=== PATIENT | female | born 1995 | race Caucasian/White ===

== ENCOUNTER 2017-02-26 06:59 | Inpatient (IN) ==
--- OUTSIDE RECORDS SUMMARY | 2017-02-26 07:12 | External Medical Summary | Continuity of Care Document ---
:1995 Author Organization [facility] [employer] Address [address] [place], [place] [id number] Phone Care Team Providers Name Role Phone Tova James MD Unavailable Unavailable Allergies, Adverse Reactions, Alerts Substance Reaction Severity Status No Known Drug Allergies Unknown Active Medications Medication Instructions Dosage Effective Dates Status Comments (start - stop) ORAL TABLET - Active famotidine 20 mg take 1 tablet by ORAL 20 MG - Active tablet route every day Problems Condition Effective Dates (start - stop) Clinical Status Ot related conditions, - second trimester Encntr for suprvsn of normal first - preg, second trimester 25 weeks gestation of - Encntr for suprvsn of normal first - preg, second trimester 22 weeks gestation of - Oth related conditions, - second trimester Encntr for suprvsn of normal first - preg, second trimester 26 weeks gestation of - Procedures Procedure Date 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 Marrufo [place], conditions, [address], [facility] [place], [place], trimesterEncntr Center [id number], for suprvsn of Chaka Valenzuela normal first 120, tel:+[phone] preg, second [place], [address] [email or web address] weeks [place], gestation of [id number] , [place]. tel: [phone] Manisha Angelo Oth Kasey In Womens related [facility], conditions, [address], second [place], [place], trimesterEncntr Center [id number], for suprvsn of Chaka Valenzuela normal first 120, tel:+21 preg, second Petey, [address] [email or web address] weeks [place], gestation of [id number] , [place]. tel: [phone] Manisha Angelo Encntr for Kasey In [facility] suprvsn of normal -2017 [facility] [place], first preg, [address], second Medical [place], [place], [id number] weeks Center [id number], gestation of Chaka Valenzuela 120, tel:+ [place] [address] [place], [id number] , [place]. tel: [phone] Family History Family Member Diagnosis Age At Onset No family history of Lung Disease No family history of Kidney Disease No family history of Stroke No family history of Thyroid Disorder No family history of Colon Cancer No family history of Breast Cancer No family history of Hypertension No family history of Ovarian Cancer No family history of Diabetes No family history of Osteoporosis No family history of Cardiovascular Disease No family history of Epilepsy Immunizations Vaccine Date Status Comments Unknown Payers Payer name Insurance type Covered alliance party ID Authorization(s) [employer] [place] [employer] - Medicaid [place] [id number] Social History Type Description Quantity Date Captured Alcohol Use Details No Caffeine Use Details coffee 1 cup per day Tobacco Use Status Smoking Status Former smoker Vital Signs Date / Height Weight BMI Pulse Blood Temperature Respiratory Body Head BMI Time: Rate Pressure Rate Surface Circumference percentile Area 155.10 28.3 133/87 -2016 lbs 6 mm[Hg] 11:47 kg/m AM eter (2) Chief Complaint And Reason For Visit Unknown Chief Complaint And Reason For Visit Reason For Referral Reason For Referral Unknown Plan Of Care Date Type Action Status Appointment Mary Alice Sepulveda BOOKED Date Type Problem Goal Intervention Status Start Date Unknown. History Of Present Illness Encounter Date Complaint History Of Present Illness This patient has no known history of present illness Functional Status Encounter Date Functional Assessment Cognitive Assessment Unknown Medications Administered Medication Instructions Dosage Effective Dates (start - stop) Status Comments Drug Treatment Unknown Instructions Date Instruction Additional Information gestational glucose lab screening domestic violence seat belt use childbirth classes / hospital facilities hospital registration genetic testing new ob handbook HIV and other routine tests risk factors identified by history anticipated course of care nutrition and weight gain counseling, special diet toxoplasmosis precautions (cats / raw meat) sexual activity exercise indications for ultrasound influenza vaccine environmental / work hazards travel tobacco (ask, advise, assess, assist and arrange) alcohol illicit / recreational drugs use of any medications (including supplements, vitamins, herbs, OTC drugs) smoking counseling
--- OUTSIDE RECORDS SUMMARY | 2017-02-26 07:12 | External Medical Summary | Continuity of Care Document ---
:1995 Author Organization [facility] Address [address] [place], [place] [id number] Phone Care Team Providers Name Role Phone Toav James MD Unavailable Unavailable Allergies, Adverse Reactions, Alerts Substance Reaction Severity Status No Known Drug Allergies Unknown Active Medications Medication Instructions Dosage Effective Dates Status Comments (start - stop) famotidine 20 mg take 1 tablet by ORAL - Active tablet route 1-2 times per day ORAL TABLET - Active Problems Condition Effective Dates (start - stop) Clinical Status Encntr for suprvsn of normal first - preg, second trimester 22 weeks gestation of - Oth related conditions, - third trimester Encntr for suprvsn of normal first - preg, third trimester 29 weeks gestation of - Oth related conditions, - second trimester Encntr for suprvsn of normal first - preg, second trimester 26 weeks gestation of - Oth related conditions, - second trimester Encntr for suprvsn of normal first - preg, second trimester 25 weeks gestation of - Procedures Procedure Date Unknown Results Test Name Date and Time Measure Units Reference Range Abnormal Flag Comments Unknown Advance Directives Directive Yes / No Effective Date File Name Unknown Encounters Encounter Practice Location Reason(s) Diagnoses Date Provider Care Team Description For Visit Members Associates [facility] Rosado Referring In Women related 7-201 Karlie. Provider: Health JOSEF, conditions, 7 700 Karlie Rosado [address], [facility] K, 700 [place], [place], [facility] [id number], for suprvsn of Chaka Valenzuela [place] normal first 120, Chaka 120, tel:+[phone] preg, third Petey [place], [address] [email or web address] [place], [place], weeks gestation [id number]. of , [place]. tel: tel: [phone] Associates Petey Sep-2 [place] In Womens 9-201 [facility] [place], 7 [address], [place], [place], [place] [id number], Chaka Valenzuela 120, tel:+[phone] [place], [address] [place], [id number] , [place]. tel: [phone] Associates Petey Ot Sep-2 [place] In Womens related 7-201 [facility] [place], conditions, 7 [address], [place], [place], [facility] [id number], for suprvsn of Chaka Valenzuela normal first 120, tel:+[phone] preg, second [place], [address] [place], weeks gestation [id number] of , [place]. tel: [phone] Associates Petey Ot Sep-1 Kasey In Womens related 8-201 [facility] [place], conditions, 7 [address], [place], [place], [facility] [id number], for suprvsn of Chaka Valenzuela normal first 120, tel:+[phone] preg, second [place], [address] [id number] [place], weeks gestation [id number] of , [place]. tel: [phone] Associates Petey Encntr for Aug-3 Kasey In Womens suprvsn of 0-201 [facility] [place], normal first 7 [address], preg, second [place], [email or web address] Center [id number], weeks gestation Chaka Valenzuela of 120, tel:[phone] [place], [address] [place], [id number] , [place]. tel: [phone] Family History Family Member Diagnosis Age At [...] of Epilepsy Immunizations Vaccine Date Status Comments Influenza, injectable, completed Source: New Immunization Record quadrivalent, preservative free, 3 yrs or older Payers Payer name Insurance type Covered alliance party ID Authorization(s) [employer] [place] [employer] - Medicaid [place] [id number] [employer] [place] [employer] - Medicaid [place] [id number] Social History Type Description Quantity Date Captured Unknown Vital Signs Date / Height Weight BMI Pulse Blood Temperature Respiratory Body Head BMI Time: Rate Pressure Rate Surface Circumference percentile Area Unknown Chief Complaint And Reason For Visit Unknown [...]
--- OUTSIDE RECORDS SUMMARY | 2017-02-26 07:12 | External Medical Summary | Continuity of Care Document ---
:1995 Author Organization [facility] Address [address] [place], [place] [id number] Phone Care Team Providers Name Role Phone [...] of normal first - preg, third trimester 31 weeks gestation of - Encntr for suprvsn [...] second trimester 25 weeks gestation of - Oth related conditions, - third trimester 33 weeks gestation of - Procedures Procedure Date Immuniz admnin, 1 vac, sngl/combo 19 Yrs + TDAP VACCINE >7 IM OB Visit No Charge Results Test Name Date and Time Measure Units Reference Range Abnormal Flag Comments Unknown Advance Directives Directive Yes / No Effective Date File Name Unknown Encounters Encounter Practice Location Reason(s) Diagnoses Date Provider Care Team Description For Visit Members Manisha Angelo [facility] Nov- Ros[place] In Womens related Karlie. Health JOSEF, conditions, 7 [address], third Medical [place], [place], [id number] [place] [id number], weeks gestation Chaka Valenzuela of 120, tel:+21 Petey, [address] [facility] [id number] , [place]. tel: [phone] Manisha Angelo [facility] for Oct-3 Rosado Referring In Womens suprvsn of Karlie. Provider: Niru BAHENA normal first 7 700 Karlie Rosado [address], preg, third Medical K, 700 [place], [place], [email or web address] [facility] [id number], weeks gestation [facility] of 120, Chaka 120, tel:+ Petey [place], [address] [place], [id number]. , [place]. tel: tel: [phone] Manisha Angelo [facility] Oct- Rosado Referring In Womens related Karlie. Provider: Niru BAHENA conditions, 7 700 Karlie Rosado [address], third Medical K, 700 [place], [facility] [id number], for suprvsn of Chaka Valenzuela [place] normal first 120, Chaka 120, tel:21 preg, third Petey [place], [address] [email or web address] [place], weeks gestation [id number]. of , [place]. tel: tel: [phone] Manisha Angelo [facility] Sep-2 [place] In Womens related Karlie. Health JOSEF conditions, 7 [address], second Medical [place], [facility] [id number], for suprvsn of Chaka Valenzuela normal first 120, tel:+[phone] preg, second [place]ey, [address] [id number] [place], weeks gestation [id number] of , [place]. tel: [phone] Manisha Angelo Oth Sep-1 Kasey In Womens related 8-201 [facility] [place], conditions, 7 [address], second Medical [place], [place], trimesterEncntr Center [id number], for suprvsn of Chaka Valenzuela normal first 120, tel:+[phone] preg, second [place], [address] [email or web address] [place], weeks gestation [id number] of , [place]. tel: [phone] Manisha Angelo Encntr for Aug- Kasey In Womens suprvsn of 0-201 [facility] [place], normal first 7 [address], preg, second Medical [place], [email or web address] Center [id number], weeks gestation Chaka Valenzuela of 120, tel:+ [place], [address] [place], [id number] , [place]. tel: [phone] Family History Family Member Diagnosis Age At [...] of Epilepsy Immunizations Vaccine Date Status Comments Tdap completed Source: New Immunization Record Influenza, injectable, completed Source: New Immunization Record quadrivalent, preservative free, 3 yrs or older Payers Payer name Insurance type Covered green party ID Authorization(s) [employer] [place] [employer] - Medicaid [place] [id number] [employer] [place] [employer] - Medicaid [place] [id number] [employer] [place] [employer] - Medicaid [place] [id number] Social History Type Description Quantity Date Captured Alcohol Use Details No Caffeine Use Details Unknown Tobacco Use Status Smoking Status Former smoker Vital Signs Date / Height Weight BMI Pulse Blood Temperature Respiratory Body Head BMI Time: Rate Pressure Rate Surface Circumference percentile Area 164.10 30.0 135/80 -2017 lbs 1 mm[Hg] 4:32 kg/m PM eter (2) Chief Complaint And Reason For [...]
--- OUTSIDE RECORDS SUMMARY | 2017-02-26 07:12 | External Medical Summary | Continuity of Care Document ---
:1995 Author Organization [facility] Address [address] [place], [place] [id number] Phone Care Team Providers Name Role Phone [...] of normal first - preg, third trimester Encounter For Screening For - Streptococcus B 35 weeks gestation of - Encntr for suprvsn [...] third trimester 33 weeks gestation of - Oth related conditions, - third trimester Encntr for suprvsn of normal first - preg, third trimester 36 weeks gestation of - Encntr for suprvsn of normal first - preg, third trimester 37 weeks gestation of - Encntr for suprvsn of normal first - preg, third trimester 31 weeks gestation of - Procedures Procedure Date OB Visit No Charge Results Test Name Date and Time Measure Units Reference Range Abnormal Flag Comments Panel Description: STREPTOCOCCUS, GROUP B CULTURE STREPTOCOCCUS, GROUP SEE NOTE STREPTOCOCCUS, GROUP B CULTURE B CULTURE 14:28:00 MICRO NUMBER: [id number] TEST STATUS: FINAL SPECIMEN SOURCE: VAGINAL/ANORECTAL SPECIMEN QUALITY: ADEQUATE RESULT: No group B Streptococcus isolatedREPORT COMMENT:FASTING:UNKNOWNTest performed at [facility] [id number] [place] [address]Sdycrnvz: FOX MIRANDA DO,MPH Advance Directives Directive Yes / No Effective Date File Name Unknown Encounters Encounter Practice Location Reason(s) Diagnoses Date Provider Care Team Description For Visit Members Associates Petey Encntr for suprvsn Dec-1 [place] In Womens of normal first 3-201 [facility]. [facility] PA, preg, third 7 700 [address] [id number] weeks Medical 1522, gestation of [facility], Chaka Valenzuela, 120, , [place], [place], tel:[phone] , [place]. tel: [phone] Manisha Angelo Ot Dec-0 [place] In Womens related conditions, 6-201 Karlie. Health PA, third 7 700 PO Box trimesterEncntr for Medical 1522, suprvsn of normal [facility], first preg, third Chaka Valenzuela, [id number] weeks 120, , gestation of [facility] [place], tel:[phone] , [place]. tel:[phone] Manisha Angelo Encntr for suprvsn Nov-2 [place] In Womens of normal first 8-201 [facility]. [facility] PA, preg, third 7 700 PO [address] trimesterEncounter Medical 1522, For Center [place], Screening For Chaka Valenzuela, Streptococcus B35 120, [id number], [facility] [place], tel: [phone] , [place]. tel: [phone] Associates Petey Ot Nov- Ros[place] In Womens related conditions, Karlie. Health PA, third [email or web address] 7 700 [address] weeks gestation of Medical 1522, [facility], , [facility] [place], 120, [id number], [place], [place], tel:[phone] , [place]. tel: [phone] Associates Petey Encntjohnson for suprn Oct-3 Rosado Referring In Womens of normal first Karlie. Provider: Health PA, preg, third 7 700 Karlie Rosado [address] [email or web address] weeks Medical K, 700 1522, gestation of Center [facility], , [facility] [place], 120, Chaka 120, [id number], [place], [place], [place], tel:[phone]. , [place]. tel: tel: [phone] Associates Petey [facility] Oct-1 Rosado Referring In Womens related conditions, Karlie. Provider: Health PA, third 7 700 Karlie Rosado PO Box trimesterEncntr for Medical K, 700 1522, suprvsn of normal [facility], first preg, third , [facility] Dr KRAUSE, [id number] weeks 120, Chaka 120, [id number], gestation of Petey [place], [place], [place], tel:[phone]. , [place]. tel: tel: [phone] Associates Petey [facility] Sep-2 [place] In Womens related conditions, Karlie. Health PA, second 7 700 PO Box trimesterEncntr for Medical 1522, suprvsn of [facility], first preg, second Chaka Valenzuela, [email or web address] weeks 120, [id number], gestation of [place], [place], tel:[phone] , [place]. tel: [phone] Manisha Angelo Oth Sep-1 Kasey In Womens related conditions, 8-201 [facility] PA, second 7 700 PO Box trimesterEncntr for Medical 1522, suprvsn of normal [facility] [place], first preg, second Chaka Valenzuela, [email or web address] weeks 120, [id number], gestation of [facility] [place], tel: [phone] , [place]. tel: [phone] Manisha Angelo Encntr for suprvsn Aug-3 Kasey In Womens of normal first 0-201 [facility], preg, second 7 700 [address] [email or web address] weeks Medical 1522, gestation of [facility], Chaka Valenzuela, 120, , [facility] [place], tel: [phone] , . tel: [phone] Family History Family Member Diagnosis Age At [...] older Payers Payer name Insurance type Covered democrat ID Authorization(s) [employer] [place] [employer] - Medicaid [place] [id number] [employer] [place] [employer] - Medicaid [place] [id number] [employer] [place] [employer] - Medicaid [place] [id number] Social History Type Description Quantity Date Captured Alcohol Use Details No Caffeine Use Details Unknown Tobacco Use Status Smoking Status Former smoker Vital Signs Date / Height Weight BMI Pulse Blood Temperature Respiratory Body Head BMI Time: Rate Pressure Rate Surface Circumference percentile Area 2 2:15 kg/m PM eter (2) 169.10 30.9 132/82 -2017 lbs 3 mm[Hg] 2:20 kg/m PM eter (2) Chief Complaint And [...]
--- OUTSIDE RECORDS SUMMARY | 2017-02-26 07:12 | External Medical Summary | Continuity of Care Document ---
:1995 Author Organization [facility] Address [address] [place], [place] [id number] Phone Care Team Providers Name Role Phone [...] Effective Dates (start - stop) Clinical Status Oth related conditions, - third trimester 33 weeks gestation of - Encntr for suprvsn [...] Streptococcus B 35 weeks gestation of - Procedures Procedure Date OB Visit No Charge Results Test Name Date and Time Measure Units Reference Range Abnormal Flag Comments Unknown Advance Directives Directive Yes / No Effective Date File Name Unknown Encounters Encounter Practice Location Reason(s) Diagnoses Date Provider Care Team Description For Visit Members Manisha Bishopntr for suprvsn Jan-2 [place] In Womens of normal first 8-201 Karlie. Health JOSEF, preg, third 7 700 [address] trimesterEncount Medical 1522, For Center [facility], Screening For Chaka Valenzuela, Streptococcus B35 120, [id number], weeks gestation of [facility] [place], tel: [phone] , [place]. tel: [phone] Manisha Angelo [facility] Jan- Ros[place] In Womens related conditions, 4 Karlie. Health JOSEF, third [email or web address] 7 700 [address] weeks gestation of Medical 1522, [facility], Chaka Valenzuela, 120, [id number], [facility] [place], tel: [phone] [address] , [place]. tel: [phone] Manisha Lewis for suprvsn Dec-3 Rosado Referring In Womens of normal first 1-201 Karlie. Provider: kashif Valladares, third 7 700 Karlie Rosado [address] [id number] weeks Medical K, 700 1522, gestation of [facility], , [facility] Dr KRAUSE, 120, Chaka 120, [id number], [place], [place], [place], tel: [phone]. , [place]. tel: tel: [phone] Manisha Angelo [facility] Dec- Rosado Referring In Womens related conditions, 7 Karlie. Provider: Health JOSEF, third 7 700 Karlie Rosado PO Box trimesterEncntr for Medical K, 700 1522, suprvsn of normal [facility], first preg, third Dr [facility] Dr KRAUSE, [email or web address] weeks 120, Chaka 120, [id number], gestation of Petey [facility] [place], [place], tel: [phone] [id number]. , [place]. tel: tel: [phone] Associates Petey Ot Sep-2 Rosado In Womens related conditions, 7-201 Karlie. Health PA, second 7 700 [address] Box trimesterEncntr for Medical 1522, suprvsn of normal [facility], first preg, second Chaka Valenzuela, [id number] weeks 120, [id number], gestation of [facility] [place], tel: [phone] , [place]. tel: [phone] Associates Petey Ot Sep-1 Kasey In Womens related conditions, 8-201 [facility] PA, second 7 700 PO Box trimesterEncntr for Medical 1522, suprvsn of normal [facility], first preg, second Chaka Valenzuela, [email or web address] weeks 120, [id number], gestation of [facility] [place], tel: [phone] , [place]. tel: [phone] Associates Petey Encntr for suprvsn Aug-3 Kasey In Womens of normal first 0-201 [facility] PA, preg, second 7 700 [address] [email or web address] weeks Medical 1522, gestation of [facility], Chaka Valenzuela, 120, [id number], [facility] [place], tel: [phone] , [place]. tel: [phone] Family History Family Member Diagnosis Age At [...] Authorization(s) [employer] [place] [employer] - Medicaid [place] [id number] [employer] [place] [employer] - Medicaid [place] [id number] [employer] [place] [employer] - Medicaid [place] [id number] Social History Type Description Quantity Date Captured Alcohol Use Details No Caffeine Use Details Unknown Tobacco Use Status Smoking Status Former smoker Vital Signs Date / Height Weight BMI Pulse Blood Temperature Respiratory Body Head BMI Time: Rate Pressure Rate Surface Circumference percentile Area 166.90 30.5 128/75 -2017 lbs 2 mm[Hg] 1:37 kg/m PM eter (2) Chief Complaint And [...]
--- OUTSIDE RECORDS SUMMARY | 2017-02-26 07:12 | External Medical Summary | Continuity of Care Document ---
:1995 Author Organization [facility] Address [address] [place], [place] Phone Allergies, Adverse Reactions, Alerts Substance Reaction Severity Status No Known Drug Allergies Unknown Active Medications Medication Instructions Dosage Effective Dates (start - Status Comments stop) ORAL TABLET - Active Problems Condition Effective Dates (start - stop) Clinical Status Encntr for suprvsn of normal first - preg, second trimester 22 weeks gestation of - Oth related conditions, - second trimester Encntr for suprvsn of normal first - preg, second trimester 25 weeks gestation of - Procedures Procedure Date Initial 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, conditions, 700 [address], [place], [place], trimesterEncntr [place] , for suprvsn of Chaka Valenzuela normal first 120, tel:+ preg, second [facility] [address] [email or web address] weeks [place], gestation of [id number] , [place]. tel: [phone] Manisha Angelo Encntr for Kasey In [facility] suprvsn of normal -2016 [facility] JOSEF, first preg, 700 [address], second [place], [place], [email or web address] weeks Center [id number], gestation of Chaka Valenzuela 120, tel:+21 [place], [address] [place], [id number] , [place]. tel: [phone] Family History Family Member Diagnosis Age At [...] Unknown Payers Payer name Insurance type Covered republican ID Authorization(s) [employer] [place] [employer] - Medicaid [place] [id number] Social History Type Description Quantity Date Captured Alcohol Use Details No Caffeine Use Details coffee 1 cup per day Tobacco Use Status Smoking Status Former smoker Non-Smoking Tobacco Use : No Details Available : No Details Available Details Vital Signs Date / Height Weight BMI Pulse Blood Temperature Respiratory Body Head BMI Time: Rate Pressure Rate Surface Circumference percentile Area 146.00 26.7 122/2017 lbs 0 mm[Hg] 2:44 kg/m PM eter (2) Chief Complaint And [...] Treatment Unknown Instructions Date Instruction Additional Information domestic violence seat belt use childbirth classes [...]
--- OUTSIDE RECORDS SUMMARY | 2017-02-26 07:12 | External Medical Summary | Continuity of Care Document ---
:1995 Author Organization [facility] Address [address] [place], [place] [id number] Phone Care Team Providers Name Role Phone Tova James MD Unavailable Unavailable Allergies, Adverse Reactions, Alerts Substance Reaction Severity Status No Known Drug Allergies Unknown Active Medications Medication Instructions Dosage Effective Dates Status Comments (start - stop) famotidine 20 mg take 1 tablet by - Active tablet ORAL route 1-2 times per day ORAL - Active TABLET famotidine 20 mg take 1 tablet by 20 MG - No Longer tablet ORAL route every Active day Problems Condition Effective Dates (start - stop) Clinical Status Oth related conditions, - second trimester Encntr for suprvsn of normal first - preg, second trimester 26 weeks gestation of - Encntr for suprvsn [...] Reference Range Abnormal Flag Comments Panel Description: Glucose [Mass/volume] in Serum or Plasma --1 hour post 50 g glucose PO GLUCOSE, GESTATIONAL 79 mg/dL <140 N Test performed at [facility] SCREEN (50G)-140 14:49:00 DIAGNOSTICS [id number] [place] [id number]: FOX MIRANDA DO,MPH Panel Description: HEMOGLOBIN + HEMATOCRIT HEMOGLOBIN 14:49:00 12.4 g/dL 11.7-15.5 N HEMATOCRIT 14:49:00 35.4 % 35.0-45.0 N REPORT COMMENT:FASTING :NOTest performed at [address] [place] [id number]: FOX MIRANDA DO,MPH Panel Description: ANTIBODY SCREEN, RBC W/REFL ID, TITER AND AG ANTIBODY NO ANTIBODIES N Reference SCREEN, RBC 14:49:00 DETECTED range No W/REFL ID, antibodies detected This TITER AND AG assay is a screening test for the detection of red blood cell antibodies. The test is not to be used for pretransfusion screening or for the medical management of an alloimmunized . REPORT COMMENT:FASTING:NOTest performed at [address] [place] [id number]: FOX MIRANDA DO,MPH Advance Directives Directive Yes / No Effective Date File Name Unknown Encounters Encounter Practice Location Reason(s) Diagnoses Date Provider Care Team Description For Visit Members Manisha Angelo [facility] Referring In Womens related Karlie. Provider: [facility], conditions, 7 700 Karlie [facility] [address], [facility] K, [address] [place], [place], [facility] , for suprvsn of Chaka Valenzuela Sodus normal first 120, Chaka 120, tel:21 preg, third Petey Angelo, [address] [email or web address] [place], [place], weeks gestation [id number]. of , [place]. tel: tel: [phone] Manisha Angelo [facility] In Womens related Karlie. [facility], conditions, 7 700 [address], [place], [place], [facility] [id number], for suprvsn of Chaka Valenzuela normal first 120, tel:+ preg, second Petey, [address] [email or web address] [place], weeks gestation [id number] of , [place]. tel: [phone] Manisha Angelo Oth Sep- [place] In Womens related [address] [place]. [facility], conditions, 7 700 [address], [facility] [place], [place], [facility] [id number], for suprvsn of Chaka Valenzuela normal first 120, tel:+ preg, second Petey, [address] [email or web address] [place], weeks gestation [id number] of , [place]. tel: [phone] Manisha Angelo Encntr for Aug- [place] In Womens suprvsn of [address] [place]. [facility] [place], normal first 7 700 [address], preg, second Medical [place], [place], [email or web address] Center [id number], weeks gestation Chaka Valenzuela of 120, tel:+ Petey, [address] [place], [id number] , [place]. tel: [phone] Family History Family Member Diagnosis Age At [...] older Payers Payer name Insurance type Covered libertarian ID Authorization(s) [employer] - Medicaid [place] [id number] [employer] - [place] [id number] Social History Type Description Quantity Date Captured Alcohol Use Details No Caffeine Use Details coffee 1 cup per day Tobacco Use Status Smoking Status Former smoker Vital Signs Date / Height Weight BMI Pulse Blood Temperature Respiratory Body Head BMI Time: Rate Pressure Rate Surface Circumference percentile Area 158.20 28.9 136/74 -2017 lbs 3 mm[Hg] 1:59 kg/m PM eter (2) 6 1:54 kg/m PM eter (2) Chief Complaint And [...]
--- OUTSIDE RECORDS SUMMARY | 2017-02-26 07:12 | External Medical Summary | Continuity of Care Document ---
:1995 Author Organization [facility] Allergies Active Description Code Type Severity Reaction Onset Reported/ Identified Relationship Clinical to Patient Status Yes No Known 88523 3 N/A N/A Drug 0 Allergies Medications Medication Packaging Start Date Stop Date Route Dosage Sig Tablet 12/18/2016 FAMOTIDINE take 1 tablet by ORAL route 1-2 times per day Problems There is no data. Procedures Code Description [place] [address] Immuniz 01/01/2017 admnin, 1 vac, sngl/combo 52400 TDAP VACCINE 01/01/2017 >7 IM Results There is no data. Encounters ACCT No. Visit Discharge Status Pt. Type Provider Facility Loc./Unit Complaint Date/Time [id number] 02/20/2017 02/20/2017 [facility], 16:15:00 23:59:59 Karlie Goodrich [id number] 02/13/2017 02/13/2017 [facility], 15:55:00 23:59:59 Karlie Goodrich [id number] 02/06/2017 02/06/2017 [facility], 14:30:00 23:59:59 Karlie Goodrich [id number] 01/29/2017 01/29/2017 [facility], 13:50:00 23:59:59 Karlie Goodrich [id number] 01/15/2017 01/15/2017 [facility], 13:30:00 23:59:59 Karlie Goodrich [id number] 12/18/2016 12/18/2016 [facility], 15:00:00 23:59:59 Karlie Goodrich [id number] 11/30/2016 11/30/2016 [facility], 09:21:00 23:59:59 Karlie Goodrich [id number] 11/28/2016 11/28/2016 [facility] Out[facility], 13:40:00 23:59:59 Karlie Goodrich [id number] 11/19/2016 11/19/2016 CLS Outpatient [place], 11:30:00 23:59:59 Neeru Vivar [id number] 10/31/2016 10/31/2016 [facility] Outpatient [facility], 14:15:00 23:59:59 Neeru Vivar [id number] 01/01/2017 Document 16:15:00 Registration
[2017-02-26] MEDS ORDERED: METHYLERGONOVINE 0.2 MG/ML INJECTION IM PRN (07:15)
[2017-02-26] MEDS ORDERED: LIDOCAINE 1% (10mg/ml) 2mL INJ PF SDV ID PRN (07:15)
[2017-02-26] MEDS ORDERED: MAG-AL + SIM ORAL LIQUID 30ml PO PRN (07:15)
[2017-02-26] MEDS ORDERED: CARBOPROST 250 MCG/ML INJECTION IM PRN (07:15)
[2017-02-26] MEDS ORDERED: CALCIUM CARBONATE Chewable 500mg TABLET PO PRN (07:15)
[2017-02-26] MEDS ORDERED: ACETAMINOPHEN 500 MG TABLET PO PRN (07:15)
[2017-02-26 07:21] VITALS: BMI 31.6
[2017-02-26] MEDS: LR 1,000 ML IV PRN ×3 (07:54→11:35)
[2017-02-26] MEDS ORDERED: D5LR 1,000 ML IV PRN (08:45)
[2017-02-26] MEDS ORDERED: OXYTOCIN DRIP 30 UNIT/500 ML ML IV PRN (08:45)
[2017-02-26] MEDS ORDERED: DiphenhydrAMINE 50 MG/ML INJECTION IVP PRN (11:18)
[2017-02-26] MEDS ORDERED: NALOXONE 0.4 MG/ML INJECTION IVP PRN (11:18)
[2017-02-26] MEDS ORDERED: ONDANSETRON 4 MG/2 ML INJECTION IVP PRN (11:18)
[2017-02-26] MEDS ORDERED: ROPIVACAINE 1% 10MG/ML INJ 200 MG, SUFentanil 50 MCG in NS 100 ML EPI PRN (11:18)
--- NOTE | 2017-02-26 11:18 | Anesthesia Preoperative Report ---
Anesthesia Epidural/Spinal Rec - Date and Time Date: 02/26/17 Preoperative Diagnosis: term SROM Procedure: Labor Epidural Plan: Epidural - Vital Signs Vital Signs: Temperature 97.7 F 02/26/17 07:21 Pulse Rate 106 H 02/26/17 07:21 Respiratory Rate 16 02/26/17 07:21 Blood Pressure 132/87 02/26/17 07:21 /Para: P:0 - Medictaions & Allergies Inpatient Medications: Current Medications Acetaminophen (Tylenol) 500 - 1,000 mg PO Q4H PRN PRN Reason: Pain Al Hydroxide/Mg Hydroxide (Maalox Plus) 30 ml PO Q3H PRN PRN Reason: Indigestion Calcium Carbonate (Tums) 500 - 1,000 mg PO Q2H PRN PRN Reason: Indigestion Carboprost Tromethamine (Hemabate) 250 mcg IM O PRN PRN Reason: .Downtime Lactated Ringer's (Lactated Ringers) 1,000 mls @ 999 mls/hr IV .Q1H1M PRN Last Admin: 02/26/17 08:32 Dose: 999 mls/hr Dextrose/Lactated Ringer's (Dextrose 5%-Lactated Ringers) 1,000 mls @ 125 mls/ hr IV .Q8H PRN PRN Reason: Labor Last Admin: 02/26/17 08:59 Dose: 125 mls/hr Oxytocin (Pitocin Drip) 30 unit in 500 mls @ 2 mls/hr IV .Q24H PRN; Protocol PRN Reason: Induction/Augmentation Last Admin: 02/26/17 08:58 Dose: 2 mls/hr Lidocaine HCl (Xylocaine-Mpf 1% Vial) 0.2 mg ID O PRN PRN Reason: IV Start Methylergonovine Maleate (Methergine) 0.2 mg IM O PRN Misoprostol (Cytotec) 800 mcg PA ONCE PRN Allergies/Adverse Reactions: Allergies Allergy/AdvReac Type Severity Reaction Status Date / Time No Known Allergies Allergy Verified 02/26/17 07:31 - Home Medications Home Medications: Home Medications Medication Instructions Recorded Confirmed Type Famotidine [Pepcid] 1 tab PO BID 02/26/17 02/26/17 History Vits #93/Iron Fum/FA 1 tab PO DAILY 02/26/17 02/26/17 History [ Formula Tablet] - Medical History Respiratory: DENIES: Asthma, Bronchitis, Chronic Obstructive Pulmonary Disease (COPD), Dyspnea, Orthopnea, Pulmonary Embolism, Pneumonia, Upper Respiratory Infection, Pulmonary Edema, Sleep Apnea, Tuberculosis, Other Cardiovascular: DENIES: Abnormal EKG, Angina, Arrhythmia, Congestive Heart Failure, Coronary Artery Disease, Heart Murmur, Hypertension, Hypotension, High Cholesterol, Myocardial Infarction, Rheumatic Fever, Valvular Heart Disease, Other Gastrointestional: Reports: Gastroesophageal Reflux Disease DENIES: Obstructive Bowel, Hepatitis, Cirrhosis, Nausea or Vomiting Present, Gastrointestinal Bleeding, Hiatal Hernia, Ulcer, Morbid Obesity, Other Neuro/Musculoskeletal: Denies: HX.MS.OSAR, Back Problems, Cerebrovascular Accident, Depression, Headaches, Loss of Consciousness, Muscle Weakness, Neuromuscular Disorder, Paralysis, Paresthesia, Syncope, Seizures, Other Renal/Endocrine: DENIES: Diabetes Mellitus Type 1, Diabetes Mellitus Type 2, Renal Failure, Dialysis, Thyroid Disease, Weight Loss, Weight Gain, Other Other History: Reports: Now DENIES: Anesthesia Reactions, Blood Transfusions, Chemotherapy, Cancer, Hemophilia, Malignant Hyperthermia, Sickle Cell Disease, Other - Surgical History Reproductive Surgery/Treatment: DENIES: Section Anesthesia Reactions: None Hx Family Anesthesia Reaction: No History of Motion Sickness: No - Social History Smoking Status: Former smoker Second Hand Exposure: No Substance Use Type: does not use Alcohol Intake Frequency: does not drink Hx Chewing Tobacco Use: No - Pertinent Findings Lab Data: CBC and BMP 02/26/17 07:37 - Physical Exam Respiratory Exam: lungs clear, bilateral breath sounds equal Cardiovascular Exam: regular rate and rhythm, no murmur - Airway Assessment Mallampati Score: II TMD: 3 Fingerbreadths Neck Extension: good Overall Assessment: may be difficult mask vent, may be difficult intubation - ASA ASA Score: 2 - Discussion Discussion: Discussed risks/options/alternatives of anesthesia and questions answered. Patient consents. Nursing pain assessment noted. Anesthesia Discussion: spouse Attestation Statement: Prior to the delivery of any anesthetic medication, I examined the patient, developed the plan, obtained the patient's consent and discussed the risk and benefits of the procedure with the patient/guardian.
[2017-02-26] MEDS ORDERED: LIDOCAINE 2%/EPI 1:200,000 20ml SDV PF ONE (18:53)
[2017-02-26] MEDS ORDERED: HYDROCORTISONE 2.5% CREAM 30gm RECTALLY PRN (19:14)
[2017-02-26] MEDS ORDERED: DiphenhydrAMINE 25 MG CAPSULE PO PRN (19:14)
[2017-02-26] MEDS ORDERED: OXYTOCIN DRIP 30 UNIT/500 ML ML IV SCH (19:15)
[2017-02-26] MEDS: IBUPROFEN 800 MG TABLET PO PRN (21:54)
[2017-02-27] MEDS: HYDROCODONE/APAP 5mg/325mg TABLET PO PRN ×4 (04:33→23:09)
--- NOTE | 2017-02-27 08:38 | Labor and Delivery Note ---
DATE OF DELIVERY 02/26/2017 DELIVERY NOTE Mary Alice is a 22-year-old 1 at 39 weeks 3 days gestational age who presented to [facility] with spontaneous rupture of membranes and was found to be 1 cm dilated. She was niels some on her own, but when she didn't change her cervix she was started on Pitocin. She received an epidural. The Pitocin was turned off at only 14 milliunits when she started having late decelerations. An IUPC was placed to help monitor contractions. Her cervix changed very slowly, so she was restarted on Pitocin. This time she only got up to 6 milliunits before she started having late decelerations, so the Pitocin was turned off again. At this point she was 9 cm. She had intermittent late decelerations with pushing. We discussed an operative vaginal delivery, but she was making good progress. She finally delivered the head in the QUAN position and we encountered a shoulder dystocia. I instructed her to stop pushing. She was placed in the Kayleigh position. The left shoulder was anterior. I was able to put posterior pressure on the shoulder to reduce it. At that point, I felt a pop. There was a nuchal cord x 1 that was reduced prior to reducing the shoulder dystocia. Baby's tone and breathing improved quickly after delivery, so he was placed on mom's abdomen and the cord clamping was delayed for more than 2 minutes. The placenta delivered spontaneously. She had a second-degree laceration that was repaired with 2-0 Vicryl. Baby is a viable male , Apgars 7/7, weight 3540 g, name "Javed." Baby was moving both arms after delivery, but his left clavicle was suspicious for a fracture. Otherwise, mom and baby tolerated the delivery well. CARLOS
[2017-02-27] MEDS: DOCUSATE CALCIUM 240 MG CAPSULE PO SCH (08:59)
[2017-02-27] MEDS: IBUPROFEN 800 MG TABLET PO PRN ×2 (08:59→17:42)
--- NOTE | 2017-02-27 08:59 | OB/GYN Progress Note ---
OB-PP Progress Note - General PPD1 Maternal Group B Strep: Negative Maternal blood type: O+ Maternal Rubella Status: Immune - Subjective Date: 02/27/17 Lochia: Minimal Pain: controlled Voiding: voiding Subjective Comments: Baby is tolerating the fractured clavicle well. - Objective Vital Signs: Last Vital Signs Temp 98.3 F 02/27/17 07:00 Pulse 116 H 02/27/17 07:00 Resp 20 02/27/17 07:00 BP 131/61 02/27/17 07:00 Pulse Ox 97 02/26/17 23:05 General: alert and oriented Abdomen: fundus firm, non-tender Extremities: non-tender - Assessment Assessment: - Plan Plan: routine care Expected date of discharge: 02/28/17
[2017-02-27 15:36] VITALS: RESP 16
[2017-02-28] MEDS: HYDROCODONE/APAP 5mg/325mg TABLET PO PRN (06:30)
--- NOTE | 2017-02-28 08:01 | OB/GYN Progress Note ---
OB-PP Progress Note - General PPD2 Maternal Group B Strep: Negative Maternal blood type: O+ Maternal Rubella Status: Immune - Subjective Date: 02/28/17 Lochia: Minimal Pain: controlled Voiding: voiding - Objective Vital Signs: Last Vital Signs Temp 98.0 F 02/27/17 23:01 Pulse 94 02/27/17 23:01 Resp 16 02/27/17 23:01 BP 122/76 02/27/17 23:01 Pulse Ox 98 02/27/17 23:01 General: alert and oriented Abdomen: fundus firm, non-tender Extremities: non-tender - Assessment Assessment: - Plan Plan: routine care, discharge home, continue PNV
[2017-02-28 09:49] VITALS: BP 129/71; PULSE 100; TEMP 98.2; O2SAT 97
[2017-02-28] MEDS: DOCUSATE CALCIUM 240 MG CAPSULE PO SCH (10:07)
[2017-02-28] MEDS: IBUPROFEN 800 MG TABLET PO PRN (10:07)
--- NOTE | 2017-02-28 14:44 | Anesthesia Postoperative Note ---
- Date and Time Date: 02/28/17 Time: 07:15 - Status Patient Participated in Evaluation: Patient Participated by Phone (spoke with RN ) Vital Signs: Temperature 98.2 F 02/28/17 07:30 Pulse Rate 100 02/28/17 07:30 Respiratory Rate 16 02/28/17 07:30 Blood Pressure 129/71 02/28/17 07:30 Pulse Oximetry 97 02/28/17 07:30 Respiratory Function: Airway Patent Cardiovascular Function: Regular Pulse Mental Status: Alert and Oriented Pain Intensity: 0 Hydration: Taking PO Fluids Complications During Recover: None Apparent Post Anesthesia Care Notes: full motor and sensation returned post epidural - Follow-Up Instructions Instructions: Per Surgeon
== END 2017-02-28 11:30 | disposition home or self-care (01) | DRG 775 ==
LOC: MC 06:59
PROVIDERS: ADMIT Obstetrics & Gynecology; ATTEND Obstetrics & Gynecology